=== PATIENT | female | born 1935 | race Caucasian/White ===

== ENCOUNTER 2018-03-06 22:16 | Inpatient (IN) | payer MEDICARE, BC ==
[2018-03-07 00:47] LABS: ADD MAN DIFF? NO
[2018-03-07] MEDS ORDERED: HYDROmorphONE 0.5 MG/0.5 ML SYG IV (00:47)
[2018-03-07 00:50] LABS: BASOPHIL # 0.1 10^3/ul (0.0-0.1); BASOPHILS % 0.6 % (0.0-2.0); EOSINOPHILS # 0.4 10^3/ul (0.0-0.5); EOSINOPHILS % 4.1 % (0.0-7.0); HEMOGLOBIN 11.9 g/dl (12.0-16.0); LYMPHOCYTES # 1.7 10^3/ul (0.8-2.9); LYMPHOCYTES % 17.5 % (15.0-51.0); MEAN CORPUSCULAR HEMOGLOBIN 28.1 pg (29.0-33.0); MEAN CORPUSCULAR HGB CONC 31.3 g/dl (32.0-37.0); MEAN CORPUSCULAR VOLUME 89.8 fl (82.0-101.0); MEAN PLATELET VOLUME 10.2 fl (7.4-10.4); MONOCYTES % 10.2 % (0.0-11.0); NEUTROPHIL # 6.7 10^3/ul (1.6-7.5); NEUTROPHILS % 67.3 % (39.0-77.0); PLATELET COUNT 187 10^3/UL (140-415); RED BLOOD COUNT 4.23 10^6/ul (4.20-5.40); RED CELL DISTRIBUTION WIDTH 13.4 % (11.5-14.5)
[2018-03-07] MEDS: ONDANSETRON 4 MG INJ IV (00:54)
[2018-03-07] MEDS: HYDROmorphONE 0.5 MG/0.5 ML SYG IV ×3 (00:54→16:01)
[2018-03-07] MEDS: SOD CHLORIDE 0.9% 500 ML IV (00:57)
[2018-03-07 01:05] LABS: ADD UMIC YES; UR ASCORBIC ACID 40 mg/dL (NEGATIVE); UR BILIRUBIN (Dip) NEGATIVE (NEGATIVE); UR BLOOD (Dip) 2+ mg/dL (NEGATIVE); UR CLARITY CLEAR (CLEAR); UR COLOR YELLOW (YELLOW); UR GLUCOSE (Dip) NEGATIVE (NEGATIVE); UR KETONES (Dip) NEGATIVE (NEGATIVE); UR LEUKOCYTE ESTERASE (Dip) 1+ Leu/ul (NEGATIVE); UR MUCUS FEW /HPF (NONE SEEN); UR NITRITE (Dip) NEGATIVE (NEGATIVE); UR RBC 73 /HPF (0-5); UR SPECIFIC GRAVITY (Dip) 1.019 (1.003-1.030); UR SQUAMOUS EPITHELIAL CELL FEW /HPF (FEW); UR TOTAL PROTEIN (Dip) NEGATIVE (NEGATIVE); UR UROBILINOGEN (Dip) NEGATIVE (NEGATIVE); UR WBC 12 /HPF (0-5)
[2018-03-07 01:07] LABS: ALANINE AMINOTRANSFERASE 17 IU/L (13-69); ALBUMIN 4.1 g/dl (3.3-4.9); ALBUMIN/GLOBULIN RATIO 1.32; ALKALINE PHOSPHATASE 79 IU/L (42-121); ANION GAP 12 (8-16); ASPARTATE AMINO TRANSFERASE 17 IU/L (15-46); BILIRUBIN,INDIRECT 0.1 mg/dl (0-1.1); BILIRUBIN,TOTAL 0.1 mg/dl (0.2-1.3); BLOOD UREA NITROGEN 18 mg/dl (7-20); CALCIUM 8.9 mg/dl (8.4-10.2); CARBON DIOXIDE 27 mmol/L (21-31); CHLORIDE 109 mmol/L (97-110); CREATININE 0.65 mg/dl (0.44-1.00); GLUCOSE 119 mg/dl (70-220); LIPASE 39 U/L (23-300); POTASSIUM 3.5 mmol/L (3.5-5.1); SODIUM 144 mmol/L (135-144); TOTAL PROTEIN 7.2 g/dl (6.1-8.1)
[2018-03-07 01:18] LABS: TROPONIN-I < 0.010 ng/ml (0.000-0.120)
[2018-03-07] MEDS ORDERED: DOCUSATE SODIUM 100 MG CAP PO (04:00)
[2018-03-07] MEDS ORDERED: NACL 0.9% 3 ML SYG IV (04:00)
[2018-03-07] MEDS ORDERED: BISACODYL (EC) 5 MG TAB PO (04:00)
[2018-03-07] MEDS: CEFTRIAXONE 1 GM/50 ML (PMX) 50 ML IVPB (05:08)
[2018-03-07] MEDS: SOD CHLORIDE 0.9% 1,000 ML IV ×3 (05:08→18:24)
[2018-03-07 06:00] LABS: ADD MAN DIFF? NO
[2018-03-07 06:06] LABS: BASOPHIL # 0.1 10^3/ul (0.0-0.1); BASOPHILS % 0.6 % (0.0-2.0); EOSINOPHILS # 0.4 10^3/ul (0.0-0.5); EOSINOPHILS % 4.4 % (0.0-7.0); HEMATOCRIT 35.5 % (37.0-47.0); HEMOGLOBIN 11.2 g/dl (12.0-16.0); LYMPHOCYTES # 1.5 10^3/ul (0.8-2.9); LYMPHOCYTES % 17.9 % (15.0-51.0); MEAN CORPUSCULAR HEMOGLOBIN 28.4 pg (29.0-33.0); MEAN CORPUSCULAR HGB CONC 31.5 g/dl (32.0-37.0); MEAN CORPUSCULAR VOLUME 89.9 fl (82.0-101.0); MEAN PLATELET VOLUME 10.1 fl (7.4-10.4); MONOCYTE # 0.8 10^3/ul (0.3-0.9); MONOCYTES % 9.7 % (0.0-11.0); NEUTROPHIL # 5.6 10^3/ul (1.6-7.5); NEUTROPHILS % 67.2 % (39.0-77.0); PLATELET COUNT 157 10^3/UL (140-415); RED BLOOD COUNT 3.95 10^6/ul (4.20-5.40); RED CELL DISTRIBUTION WIDTH 13.5 % (11.5-14.5)
[2018-03-07 06:06] LABS: WHITE BLOOD COUNT 8.3 10^3/ul (4.8-10.8)
[2018-03-07 06:44] LABS: MAGNESIUM 1.8 mg/dl (1.7-2.5)
[2018-03-07 06:45] LABS: ALANINE AMINOTRANSFERASE 20 IU/L (13-69); ALBUMIN 3.5 g/dl (3.3-4.9); ALKALINE PHOSPHATASE 66 IU/L (42-121); ANION GAP 11 (8-16); ASPARTATE AMINO TRANSFERASE 17 IU/L (15-46); BILIRUBIN,INDIRECT 0.1 mg/dl (0-1.1); BILIRUBIN,TOTAL 0.1 mg/dl (0.2-1.3); BLOOD UREA NITROGEN 15 mg/dl (7-20); CALCIUM 8.3 mg/dl (8.4-10.2); CARBON DIOXIDE 25 mmol/L (21-31); CHLORIDE 112 mmol/L (97-110); CREATININE 0.56 mg/dl (0.44-1.00); GLUCOSE 97 mg/dl (70-220); POTASSIUM 3.4 mmol/L (3.5-5.1); SODIUM 145 mmol/L (135-144); TOTAL PROTEIN 6.4 g/dl (6.1-8.1)
[2018-03-07] MEDS: KETOROLAC 15 MG INJ IV (06:55)
[2018-03-07] MEDS ORDERED: LORAZEPAM 0.5 MG TAB PO (07:30)
[2018-03-07] MEDS: PANTOPRAZOLE (EC) 40 MG TAB PO (07:35)
[2018-03-07 08:35] LABS: HEMOGLOBIN A1C 5.7 % (0-5.9)
[2018-03-07] MEDS ORDERED: VALSARTAN 160 MG TAB PO (09:00)
[2018-03-07] MEDS ORDERED: HYDROCHLOROTHIAZIDE 25 MG TAB PO (09:00)
[2018-03-07] MEDS: ESCITALOPRAM 10 MG TAB PO (09:49)
[2018-03-07] MEDS: TAMSULOSIN (SR) 0.4 MG CAP PO ×2 (09:49→20:21)
[2018-03-07] MEDS: HYDROCHLOROTHIAZIDE 25 MG TAB PO (09:50)
[2018-03-07] MEDS: LOSARTAN 50 MG TAB PO (09:50)
[2018-03-07] MEDS: METOPROLOL 50 MG TAB PO ×2 (09:52→20:20)
[2018-03-07] MEDS: POTASSIUM CHLORIDE (SR) 10 MEQ TAB PO (11:58)
[2018-03-07 12:06] LABS: IRON 28 ug/dl (35-150)
[2018-03-07 12:15] LABS: % IRON SATURATION 9 % SAT (22-52); TOTAL IRON BINDING CAPACITY 299 ug/dl (241-421)
[2018-03-07 12:57] LABS: CHOL/HDL RATIO 3.9 RATIO; HDL CHOLESTEROL 47 mg/dl (33-92); LDL CHOLESTEROL,CALCULATED 113 mg/dl; TRIGLYCERIDES 125 mg/dl (0-149)
[2018-03-07 12:57] LABS: CHOLESTEROL 185 mg/dl (100-200)
[2018-03-07] MEDS: ATORVASTATIN 10 MG TAB PO (20:20)
[2018-03-08] MEDS: CEFTRIAXONE 1 GM/50 ML (PMX) 50 ML IVPB (03:45)
[2018-03-08] MEDS: SOD CHLORIDE 0.9% 1,000 ML IV ×3 (04:23→17:14)
[2018-03-08] MEDS: PANTOPRAZOLE (EC) 40 MG TAB PO (05:06)
[2018-03-08 06:20] LABS: ADD MAN DIFF? NO
[2018-03-08 06:31] LABS: WHITE BLOOD COUNT 9.1 10^3/ul (4.8-10.8)
[2018-03-08 06:31] LABS: BASOPHILS % 0.3 % (0.0-2.0); EOSINOPHILS # 0.4 10^3/ul (0.0-0.5); HEMATOCRIT 36.7 % (37.0-47.0); HEMOGLOBIN 11.5 g/dl (12.0-16.0); LYMPHOCYTES # 1.2 10^3/ul (0.8-2.9); LYMPHOCYTES % 13.2 % (15.0-51.0); MEAN CORPUSCULAR HEMOGLOBIN 28.3 pg (29.0-33.0); MEAN CORPUSCULAR HGB CONC 31.3 g/dl (32.0-37.0); MEAN CORPUSCULAR VOLUME 90.2 fl (82.0-101.0); MEAN PLATELET VOLUME 10.3 fl (7.4-10.4); MONOCYTE # 0.6 10^3/ul (0.3-0.9); NEUTROPHIL # 6.8 10^3/ul (1.6-7.5); NEUTROPHILS % 75.2 % (39.0-77.0); PLATELET COUNT 174 10^3/UL (140-415); RED BLOOD COUNT 4.07 10^6/ul (4.20-5.40); RED CELL DISTRIBUTION WIDTH 13.3 % (11.5-14.5)
[2018-03-08 07:00] LABS: ANION GAP 13 (8-16); BLOOD UREA NITROGEN 12 mg/dl (7-20); CALCIUM 8.5 mg/dl (8.4-10.2); CARBON DIOXIDE 25 mmol/L (21-31); CHLORIDE 109 mmol/L (97-110); CREATININE 0.56 mg/dl (0.44-1.00); GLUCOSE 105 mg/dl (70-220); POTASSIUM 3.8 mmol/L (3.5-5.1); SODIUM 143 mmol/L (135-144)
[2018-03-08 07:26] LABS: MAGNESIUM 1.8 mg/dl (1.7-2.5)
[2018-03-08 07:26] LABS: PHOSPHORUS 3.2 mg/dl (2.5-4.9)
[2018-03-08] MEDS: TAMSULOSIN (SR) 0.4 MG CAP PO ×2 (09:02→20:04)
[2018-03-08] MEDS: ESCITALOPRAM 10 MG TAB PO (09:02)
[2018-03-08] MEDS: METOPROLOL 50 MG TAB PO ×2 (09:07→20:04)
[2018-03-08] MEDS: LOSARTAN 50 MG TAB PO (09:07)
[2018-03-08] MEDS: HYDROCHLOROTHIAZIDE 25 MG TAB PO (09:08)
[2018-03-08] MEDS: ACETAMINOPHEN 325 MG TAB PO (13:57)
[2018-03-08] MEDS: ATORVASTATIN 10 MG TAB PO (20:04)
[2018-03-09] MEDS: SOD CHLORIDE 0.9% 1,000 ML IV ×3 (00:52→17:20)
[2018-03-09] MEDS: CEFTRIAXONE 1 GM/50 ML (PMX) 50 ML IVPB (03:38)
[2018-03-09] MEDS: PANTOPRAZOLE (EC) 40 MG TAB PO (05:17)
[2018-03-09] MEDS: ACETAMINOPHEN 325 MG TAB PO ×2 (05:20→17:20)
[2018-03-09] MEDS: ESCITALOPRAM 10 MG TAB PO (08:15)
[2018-03-09] MEDS: LOSARTAN 50 MG TAB PO (08:16)
[2018-03-09] MEDS: TAMSULOSIN (SR) 0.4 MG CAP PO (08:16)
[2018-03-09] MEDS: METOPROLOL 50 MG TAB PO (08:16)
[2018-03-09] MEDS: HYDROCHLOROTHIAZIDE 25 MG TAB PO (08:17)
== END 2018-03-09 18:05 | disposition home or self-care (01) | DRG 694 ==
LOC: E/R 22:16 → MS2 03-07 03:40
DX: N13.2 Hydronephrosis with renal and ureteral calculous obstruction (principal); N20.0 Calculus of kidney; N39.0 Urinary tract infection, site not specified; I10 Essential (primary) hypertension; F32.9 Major depressive disorder, single episode, unspecified; E78.5 Hyperlipidemia, unspecified; D64.9 Anemia, unspecified; F41.9 Anxiety disorder, unspecified
CPT/HCPCS: 36415; 74018; 74176; 80048; 80053; 80061; 81001; 83036; 83540; 83690; 83735; 84100; 84443; 84484; 85025; 87086; 93005; 96374; 96375; 99285-25